=== PATIENT | female | born 1970 | race Caucasian/White ===

== ENCOUNTER 2016-04-21 19:33 | Emergency (ER) | payer MEDICARE, OTHER ==
[2016-04-21 21:40] LABS: BASOPHIL 0.2 % (0-2); EOSINOPHIL 1.1 % (0-5); HCT 38.1 % (37.0-47.0); HGB 13.2 g/dl (12.5-16.0); LYMPHOCYTE 18.4 % (15-48); MCH 32.6 pg (25.0-31.0); MCHC 34.6 g/dL (32.0-36.0); MCV 94.1 fL (78.0-100.0); MONOCYTE 11.2 % (0-12); MPV 10.9 fL (6.0-9.5); NEUTROPHIL 69.1 % (41-80); RBC 4.05 M/uL (4.20-5.40); RDW 12.6 % (11.5-14.0); WBC 8.9 K/uL (4.0-10.5)
[2016-04-21 21:50] LABS: PLT 93 K/uL (150-400)
[2016-04-21 21:57] LABS: CREATININE 0.6 mg/dL (0.5-1.0); POTASSIUM 3.6 mmol/L (3.5-5.1)
== END 2016-04-21 23:03 | disposition home or self-care (01) ==
LOC: FER 19:33
PROVIDERS: Nurse Practitioner
DX: L02.31 Cutaneous abscess of buttock (principal); E03.9 Hypothyroidism, unspecified; F17.210 Nicotine dependence, cigarettes, uncomplicated; Z87.448 Personal history of other diseases of urinary system; Z88.0 Allergy status to penicillin; Z79.899 Other long term (current) drug therapy
CPT/HCPCS: 36415; 80048; 85025; 87070; 87205